=== PATIENT | male | born 1975 | race African-American/Black ===

== ENCOUNTER 2020-05-21 09:00 | Day surgery (SDC) | payer OTHER ==
[2020-05-17 16:14] VITALS: BMI 43.9
[2020-05-21 11:10] VITALS: BP 138/78; PULSE 66; TEMP 99
--- NOTE | 2020-05-24 17:08 | PATH ---
Surgical Pathology Report Patient Name: BERNARDO ROSENBERG [facility]. Rec. #: [id number] /Age/Gender: 1975 (Age: 44) / M Account: [id number] Location: [facility] Taken: 05/21/2020 Received: 05/21/2020 Reported: 05/24/2020 Physicians: Nilo Peralta M.D. Specimen(s) Received A: ANTRUM B: BODY OF STOMACH C: DISTAL ESOPHAGUS Clinical History GERD, polyps Final Diagnosis A. STOMACH, ANTRUM, BIOPSY: GASTRIC ANTRAL MUCOSA WITH MILD CHRONIC GASTRITIS. IMMUNOHISTOCHEMICAL STAIN FOR H. PYLORI IS NEGATIVE. B. STOMACH, BODY, BIOPSY: GASTRIC BODY MUCOSA WITH MILD CHRONIC GASTRITIS. IMMUNOHISTOCHEMICAL STAIN FOR H. PYLORI IS NEGATIVE. C. DISTAL ESOPHAGUS, BIOPSY: SQUAMOUS MUCOSA WITHOUT SIGNIFICANT PATHOLOGIC FINDINGS. Positive and negative controls (internal if applicable) show appropriate results. Electronically Signed Sruthi Love M.D. Gross Description A. Received in formalin, labeled "antrum" are 2 gentile, irregular portions of soft tissue measuring 0.3 and 0.5 cm. in greatest dimension. The specimens are submitted in toto in one cassette. B. Received in formalin, labeled "body of stomach" is a gentile, irregular portion of soft tissue measuring 0.7 cm. in greatest dimension. The specimen is submitted in toto in one cassette. C. Received in formalin, labeled "distal esophagus" is a gentile, irregular portion of soft tissue measuring 0.6 cm. in greatest dimension. The specimen is submitted in toto in one cassette. DL/05/21/2020 saudi/05/21/2020
== END 2020-05-21 11:00 | disposition home or self-care (01) ==
LOC: FASU-ENDO 09:00
PROVIDERS: ATTEND Internal Medicine Gastroenterology
PROC: 0DB68ZX Excision of Stomach, Via Natural or Artificial Opening Endoscopic, Diagnostic (ICD-10-PCS; 2020-05-21)
PROC: 0DB48ZX Excision of Esophagogastric Junction, Via Natural or Artificial Opening Endoscopic, Diagnostic (ICD-10-PCS; 2020-05-21)
PROC: 0DJD8ZZ Inspection of Lower Intestinal Tract, Via Natural or Artificial Opening Endoscopic (ICD-10-PCS; principal; 2020-05-21 09:43)
DX: Z86.010 Personal history of colon polyps (principal); K64.8 Other hemorrhoids; K29.50 Unspecified chronic gastritis without bleeding; K44.9 Diaphragmatic hernia without obstruction or gangrene; K21.9 Gastro-esophageal reflux disease without esophagitis; Z87.11 Personal history of peptic ulcer disease
CPT/HCPCS: 82962; 88305-TC; 88342-TC